=== PATIENT | male | born 1985 | race Caucasian/White ===

== ENCOUNTER → 2023-03-13 11:53 | Outpatient (CLI) | payer OTHER, SELFPAY ==
--- NOTE | 2023-03-13 | DI.MRI.S_ITS ---
PROCEDURE: MR WRIST RT WO CON INDICATIONS: PAIN IN RT WRIST TECHNIQUE: Noncontrast coronal proton density fast spin echo and T2 fast spin echo with fat saturation; coronal 3-D gradient echo, axial T1 spin echo and T2 fast spin echo with fat saturation, sagittal T1 spin echo through the wrist. COMPARISON: [facility], MR, MR WRIST LT WO CON, 03/13/2023, 12:06. None. FINDINGS: Image quality: Excellent. Bones and cartilage: The carpal bones are normally aligned. No bone marrow contusions or fractures. No evidence for avascular necrosis. Type 2 lunate is seen without significant degenerative changes at the hamatolunate articulation. Carpal ligaments: The scapholunate and lunotriquetral ligaments appear intact. On sagittal images, the pisohamate ligament appears intact. Triangular fibrocartilage complex: The triangular fibrocartilage appears intact. Tendons and soft tissues: The median nerve appears thickened with increased signal intensity as it enters the carpal tunnel. There is mild volar bowing of the flexor retinaculum. The ulnar nerve appears normal within Guyon's canal. All six extensor tendon compartments demonstrate normal morphology, without pathologic tendon sheath fluid. Small lobular ganglion cyst at the volar radial aspect of the radiocarpal joint measuring approximately 7 x 3 x 6 mm. IMPRESSION: 1. Thickening of the median nerve with increased signal intensity at the level of the carpal tunnel is suspicious for median neuritis. There is mild volar bowing of the flexor retinaculum. Recommend clinical correlation to exclude carpal tunnel syndrome. 2. No acute trabecular bone injury. No significant ligament or tendon injury is seen. Approved by: Ruslan Alvarenga M.D. on 03/13/2023 at 13:01
--- NOTE | 2023-03-13 | DI.MRI.S_ITS ---
PROCEDURE: MR WRIST LT WO CON INDICATIONS: PAIN IN LT WRIST TECHNIQUE: Noncontrast coronal proton density fast spin echo and T2 fast spin echo with fat saturation; coronal 3-D gradient echo, axial T1 spin echo and T2 fast spin echo with fat saturation, sagittal T1 spin echo through the wrist. COMPARISON: None. FINDINGS: Image quality: Excellent. Bones and cartilage: The carpal bones are normally aligned. No bone marrow contusions or fractures. No evidence for avascular necrosis. Type 2 lunate is seen without significant degenerative changes at the hamatolunate articulation. Carpal ligaments: The scapholunate and lunotriquetral ligaments appear intact. On sagittal images, the pisohamate ligament appears intact. Triangular fibrocartilage complex: The triangular fibrocartilage appears intact. Tendons and soft tissues: There is thickening of the median nerve with increased signal intensity as it nears the carpal tunnel. Volar bowing of the flexor retinaculum is noted. The flexor tendons are grossly intact. The ulnar nerve appears normal within Guyon's canal. Intermediate signal intensity is seen within the extensor pollicis brevis and abductor pollicis longus tendons in the 1st extensor compartment, consistent with tendinosis. No signs of tenosynovitis. The remaining extensor tendon compartments demonstrate normal morphology, without pathologic tendon sheath fluid. No soft tissue ganglion cysts. IMPRESSION: 1. Thickening and increased signal intensity within the median nerve is suspicious for median neuritis. There is volar bowing of the flexor retinaculum. Recommend clinical correlation for carpal tunnel syndrome. 2. Mild tendinosis of the extensor pollicis brevis and abductor pollicis longus tendons. 3. No acute trabecular bone injury. No significant ligament injury is seen. Approved by: Ruslan Alvarenga M.D. on 03/13/2023 at 13:09
== END ==
PROVIDERS: PCP Physician Assistant; Referring Provider Physician Assistant; Visit Provider Physician Assistant
DX: M25.531 Pain in right wrist (principal); M25.532 Pain in left wrist
CPT/HCPCS: 73221